=== PATIENT | male | born 1990 | race Caucasian/White ===

== ENCOUNTER 2024-12-23 20:36 | Emergency (ER) | payer SELFPAY ==
[2024-12-23 20:53] VITALS: BP 122/76; PULSE 72; RESP 16; TEMP 36.5; O2SAT 98; BMI 28.5
== END 2024-12-23 22:43 | disposition left against medical advice (07) ==
LOC: ED 21:54
PROVIDERS: Emergency Provider Emergency Medicine
DX: Z53.21 Procedure and treatment not carried out due to patient leaving prior to being seen by health care provider (principal)
CPT/HCPCS: 99281